=== PATIENT | male | born 2000 | race Caucasian/White ===

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

== ENCOUNTER 2019-03-21 07:17 | Emergency (ER) | payer SELFPAY ==
[~2019-03-21] VITALS: Ht 172.7 cm; Wt 63.5 kg
[2019-03-21] MEDS ORDERED: SEPTDS PO (08:04)
== END 2019-03-21 08:09 | disposition home or self-care (01) ==
LOC: ED 07:17
DX: L02.31 Cutaneous abscess of buttock (principal); F17.200 Nicotine dependence, unspecified, uncomplicated; F12.90 Cannabis use, unspecified, uncomplicated; Z79.899 Other long term (current) drug therapy; Z91.030 Bee allergy status

== ENCOUNTER 2024-03-27 17:15 | Emergency (ER) | payer SELFPAY ==
[~2024-03-27] VITALS: Wt 72.6 kg
[2024-03-27] MEDS ORDERED: LORazepam 1 MG TAB PO ONE (17:40)
[2024-03-27] MEDS ORDERED: VISTARIL25 MG PO (18:23)
== END 2024-03-27 18:36 | disposition home or self-care (01) ==
LOC: ED 17:15
DX: F41.9 Anxiety disorder, unspecified (principal); F12.90 Cannabis use, unspecified, uncomplicated; Z88.8 Allergy status to other drugs, medicaments and biological substances

== ENCOUNTER → 2024-04-18 | Outpatient (CLI) | payer BC ==
[~2024-04-18] MED LIST changes: +VISTARIL25 MG PO
== END | disposition home or self-care (01) ==
LOC: CARD 01:52
PROVIDERS: ATTEND Family Medicine
DX: R42 Dizziness and giddiness (principal)

== ENCOUNTER 2024-08-06 18:37 | Emergency (ER) | payer BC ==
[~2024-08-06] VITALS: Ht 170.1 cm; Wt 72.6 kg
[2024-08-06] MEDS ORDERED: DIAZEPAM 10 MG/2 ML SYR IV ONE (19:10)
== END 2024-08-06 20:50 | disposition home or self-care (01) ==
LOC: ED 18:37
DX: F41.9 Anxiety disorder, unspecified (principal); R20.0 Anesthesia of skin; F32.A Depression, unspecified; Z88.8 Allergy status to other drugs, medicaments and biological substances

== ENCOUNTER 2024-10-14 03:38 | Emergency (ER) | payer BC ==
[~2024-10-14] VITALS: Ht 170.1 cm; Wt 77.1 kg
[2024-10-14] MEDS ORDERED: Meloxicam 15 MG TAB PO ONE (03:55)
[2024-10-14] MEDS ORDERED: MELOXICAM15 MG PO (04:30)
== END 2024-10-14 04:30 | disposition home or self-care (01) ==
LOC: ED 03:38
DX: S60.222A Contusion of left hand, initial encounter (principal); F41.9 Anxiety disorder, unspecified; Z91.048 Other nonmedicinal substance allergy status; W22.01XA Walked into wall, initial encounter; Y93.89 Activity, other specified; Y92.89 Other specified places as the place of occurrence of the external cause; Y99.8 Other external cause status